=== PATIENT | male | born 1945 | race Caucasian/White ===

== ENCOUNTER 2020-06-29 12:18 | Inpatient (IN) ==
[2020-06-29 14:51] LABS: ABS Lymphocytes 1.1 10^3/ul (1.0-4.8); ABS Monocytes 0.5 10^3/ul (0-0.8); ABS Neutrophils 7.5 10^3/ul (1.5-7.7); Eosinophil % 0.5 %; Hematocrit 43 % (42-52); Hemoglobin 15.6 g/dL (14.0-18.0); Lymphocyte % 11.8 %; Mean Corpuscular HGB Conc 36 g/dL (31-36); Mean Corpuscular Hemoglobin 33 pg (27-31); Mean Corpuscular Volume 90 fL (80-94); Mean Platelet Volume 7.4 fL (7.4-10.4); Nucleated Red Blood Cells % 0.1; Platelet Count 285 10^3/uL (150-450); Red Blood Count 4.78 10^6 /uL (4.18-5.48); Red Cell Distribution Width 13 % (10-15); White Blood Count 9.2 10^3/uL (3.5-10.8)
[2020-06-29 15:05] LABS: Troponin I 0.01 ng/mL (<0.03)
[2020-06-29 15:24] LABS: ALT 27 U/L (7-52); AST 22 U/L (13-39); Albumin/Globulin Ratio 1.8 (1-3); Alkaline Phosphatase 55 U/L (34-104); Amylase 62 U/L (29-103); Anion Gap 13 mmol/L (2-11); BUN/Creatinine Ratio 17.9 (8-20); Blood Urea Nitrogen 17 mg/dL (6-24); C Reactive Protein < 1.00 mg/L (<8.01); CO2 Carbon Dioxide 24 mmol/L (22-32); Calcium 10.8 mg/dL (8.6-10.3); Chloride 96 mmol/L (101-111); EGFR African American 94.3 (>60); EGFR Non-African American 77.9 (>60); Globulin 2.8 g/dL (2-4); Glucose 75 mg/dL (70-100); Lipase 48 U/L (11.0-82.0); Potassium 4.4 mmol/L (3.5-5.0); Sodium 133 mmol/L (135-145); Total Protein 7.8 g/dL (6.4-8.9)
[2020-06-29 15:44] LABS: Urine Appearance Cloudy; Urine Bilirubin Negative (Negative); Urine Blood Negative (Negative); Urine Color Yellow; Urine Glucose Negative (Negative); Urine Ketones 1+ (Negative); Urine Nitrite Negative (Negative); Urine Protein 1+(30 mg/dL) (Negative); Urine Specific Gravity 1.018 (1.010-1.030); Urine Urobilinogen Negative (Negative)
[2020-06-29 15:51] LABS: Urine Bacteria 3+ (Absent); Urine Red Blood Cell 1+(3-5/hpf) (Absent); Urine Squamous Epithelial Cell Present (Absent); Urine White Blood Cell Trace(0-5/hpf) (Absent)
[2020-06-29] MEDS: NS 0.9% 1000 ml BAG 1,000 ML IV SCH ×3 (16:17→22:02)
[2020-06-29 17:21] LABS: TSH Ultra Thyroid Stim Horm 3.49 mcIU/mL (0.34-5.60)
[2020-06-29] MEDS ORDERED: Ondansetron 4 mg VIAL 2 MG/ML 2 ml VIAL IV PRN (17:37)
[2020-06-29 18:47] LABS: Vitamin B12 > 1450 pg/mL (180-914)
[2020-06-29] MEDS: Enoxaparin 40 MG/0.4 ML SYR SUBCUT SCH (21:50)
[2020-06-30 07:01] LABS: ABS Lymphocytes 1.3 10^3/ul (1.0-4.8); ABS Monocytes 0.6 10^3/ul (0-0.8); ABS Neutrophils 6.8 10^3/ul (1.5-7.7); Eosinophil % 0.5 %; Hematocrit 39 % (42-52); Lymphocyte % 14.9 %; Mean Corpuscular HGB Conc 36 g/dL (31-36); Mean Corpuscular Hemoglobin 33 pg (27-31); Mean Corpuscular Volume 91 fL (80-94); Mean Platelet Volume 7.6 fL (7.4-10.4); Platelet Count 266 10^3/uL (150-450); Red Cell Distribution Width 13 % (10-15); White Blood Count 8.9 10^3/uL (3.5-10.8)
[2020-06-30 07:21] LABS: Albumin 4.1 g/dL (3.2-5.2); Albumin/Globulin Ratio 1.9 (1-3); BUN/Creatinine Ratio 15.2 (8-20); Calcium 9.2 mg/dL (8.6-10.3); EGFR African American 116.7 (>60); EGFR Non-African American 96.4 (>60); Globulin 2.2 g/dL (2-4); Potassium 3.9 mmol/L (3.5-5.0); Total Protein 6.3 g/dL (6.4-8.9)
[2020-06-30] MEDS: NS 0.9% 1000 ml BAG 1,000 ML IV SCH (11:25)
[2020-06-30] MEDS: LIRAGLUTIDE 18 MG/3 ML SUBCUT SCH (11:26)
[2020-06-30] MEDS: Enoxaparin 40 MG/0.4 ML SYR SUBCUT SCH (16:57)
[2020-07-01] MEDS: NS 0.9% 1000 ml BAG 1,000 ML IV SCH ×2 (00:04→13:49)
[2020-07-01] MEDS: LIRAGLUTIDE 18 MG/3 ML SUBCUT SCH (08:19)
[2020-07-01] MEDS ORDERED: Dextrose 50% Syringe 50 ml 25 GM/50 ML SYRINGE IV PUSH PRN (13:44)
[2020-07-01] MEDS: Enoxaparin 40 MG/0.4 ML SYR SUBCUT SCH (17:05)
[2020-07-01] MEDS ORDERED: Insulin GLARGINE 100 un/ml 10 ml VIAL SUBCUT SCH (21:00)
[2020-07-02] MEDS: NS 0.9% 1000 ml BAG 1,000 ML IV SCH (04:21)
[2020-07-02] MEDS: LIRAGLUTIDE 18 MG/3 ML SUBCUT SCH (07:25)
[2020-07-02] MEDS ORDERED: fentaNYL 100 mcg/2 ml 50 MCG/ML VIAL ONE (13:37)
[2020-07-02] MEDS ORDERED: Midazolam 10 mg/10 ml VIAL 1 mg/ml 10 ml VIAL (10 mg) ONE (13:37)
[2020-07-02 19:04] VITALS: BP 144/76
== END 2020-07-02 17:25 | disposition home or self-care (01) | DRG 392 ==
LOC: ED 12:18 → MED 17:37
PROVIDERS: ADMIT Internal Medicine; ATTEND Internal Medicine